=== PATIENT | female | born 1960 | race Caucasian/White ===

== ENCOUNTER 2016-12-14 15:48 | Outpatient (CLI) | payer BC ==
--- NOTE | 2016-12-14 18:29 | RAD ---
TWO VIEWS OF THE RIGHT HIP: 12/14/16 COMPARISON: None. HISTORY: Right sided hip pain. No history of trauma. FINDINGS: There is mild superior joint space narrowing involving the right hip. There is mild lateral acetabul ar osteophyte formation. No acute fracture or evidence of dislocation. IMPRESSION: Right hip degenerative change with no fracture or evidence of dislocation seen. POS: [facility]
== END 2016-12-14 15:49 | disposition home or self-care (01) ==
LOC: SCSRAD 15:48
PROVIDERS: ATTEND Family Medicine
DX: M25.551 Pain in right hip (principal); M16.11 Unilateral primary osteoarthritis, right hip

== ENCOUNTER 2017-05-03 14:26 | Outpatient (CLI) | payer BC | END 2017-05-03 14:27 | disposition home or self-care (01) | LOC: BICMAMMO 14:26 | PROVIDERS: ATTEND Family Medicine | DX: Z12.31 Encounter for screening mammogram for malignant neoplasm of breast (principal); M85.88 Other specified disorders of bone density and structure, other site | CPT/HCPCS: 77063; 77067; 77080 ==

== ENCOUNTER 2021-09-11 14:06 | Outpatient (CLI) | payer BC | END 2021-09-11 14:07 | disposition home or self-care (01) | LOC: BICMAMMO 14:06 | PROVIDERS: ATTEND Family Medicine | DX: Z12.31 Encounter for screening mammogram for malignant neoplasm of breast (principal); Z80.3 Family history of malignant neoplasm of breast | CPT/HCPCS: 77063; 77067 ==

== ENCOUNTER 2023-07-12 14:35 | Outpatient (CLI) | payer MEDICARE, BC | END 2023-07-12 14:36 | disposition home or self-care (01) | LOC: BICMAMMO 14:35 | PROVIDERS: ATTEND Family Medicine | DX: Z12.31 Encounter for screening mammogram for malignant neoplasm of breast (principal); Z80.3 Family history of malignant neoplasm of breast; N64.89 Other specified disorders of breast | CPT/HCPCS: 77063; 77067 ==

== ENCOUNTER 2023-07-28 09:27 | Outpatient (CLI) | payer MEDICARE, BC | END 2023-07-28 09:28 | disposition home or self-care (01) | LOC: BICMAMMO 09:27 | PROVIDERS: ATTEND Family Medicine | DX: N64.89 Other specified disorders of breast (principal) | CPT/HCPCS: 77065; G0279 ==